=== PATIENT | female | born 1990 | race American Indian/Alaskan Native ===

== ENCOUNTER 2019-01-28 21:10 | Emergency (ER) | payer MEDICAID ==
[2019-01-28 21:33] VITALS: BP 130/103; PULSE 89; RESP 18; TEMP 98.6; O2SAT 100
--- NOTE | 2019-01-28 21:56 | ED PDOC ---
Arrival/HPI - General Historian: Patient - History of Present Illness Narrative History of Present Illness (Text): 01/28/19 21:52 Pt is a 28 yo female with a PMH of SCD, gastric ulcer, migraines, who presents to the ED complaining of a headache since January 16. Pt stated she has been to multiple emergency departments but has left because the wait was too long. Pt states her headache feels band-like around her head, the pain is 10/10 and pressure like. She states she has been vomiting. Pt denies diarrhea. Pt reports visual changes such as auras which occur intermittently. Time/Duration: < month Quality: Pressure Severity Level: 10 Activities at Onset: Rest Context: Sitting <Thaddeus Finney - Last Filed: 01/28/19 22:38> <Tunde Benítez - Last Filed: 01/29/19 01:15> - General Chief Complaint: Headache Past Medical History - Neurological Hx Migraine: Yes - Hematological/Oncological Hx Sickle Cell Trait: Yes - Gastrointestinal Hx Gastrointestinal Ulcer: Yes - Psychiatric Hx Substance Use: No - Surgical History Other/Comment: port insertion - Anesthesia Hx Anesthesia: Yes Hx Anesthesia Reactions: No Hx Malignant Hyperthermia: No <Thaddeus Finney - Last Filed: 01/28/19 22:38> Family/Social History Family/Social History: Other (HLD) Smoking Status: Never Smoked Hx Alcohol Use: Yes Frequency of alcohol use: Socially Hx Substance Use: No <Thaddeus Finney - Last Filed: 01/28/19 22:38> Allergies/Home Meds <Thaddeus Finney - Last Filed: 01/28/19 22:38> <Tunde Benítez - Last Filed: 01/29/19 01:15> Allergies/Adverse Reactions: Allergies meperidine [From Demerol] Allergy (Verified 01/28/19 21:30) ANAPHYLAXIS Review of Systems - Review of Systems Constitutional: Normal Eyes: Vision Changes ENT: Normal Respiratory: Normal Cardiovascular: Normal Gastrointestinal: Nausea, Vomiting. absent: Diarrhea Musculoskeletal: Normal Skin: Normal Neurological: Headache Endocrine: Normal Hemo/Lymphatic: Normal Psychiatric: Normal <Thaddeus Finney - Last Filed: 01/28/19 22:38> Physical Exam Vital Signs Temp Pulse Resp BP Pulse Ox 01/28/19 21:32 98.6 F 89 18 130/103 H 100 Temperature: Afebrile Blood Pressure: Normal Pulse: Regular Respiratory Rate: Normal Appearance: Positive for: Well-Appearing Mental Status: Positive for: Alert and Oriented X 3 - Systems Exam Head: Present: Atraumatic, Normocephalic Pupils: Present: PERRL Extroacular Muscles: Present: EOMI Mouth: Present: Moist Mucous Membranes Neck: Present: Normal Range of Motion Respiratory/Chest: Present: Clear to Auscultation, Good Air Exchange. No: Respiratory Distress, Accessory Muscle Use Cardiovascular: Present: Regular Rate and Rhythm, Normal S1, S2 Abdomen: Present: Tenderness, Distention, Normal Bowel Sounds Upper Extremity: Present: Normal Inspection Lower Extremity: Present: Normal Inspection Neurological: Present: GCS=15, CN II-XII Intact, Speech Normal Skin: Present: Warm, Dry, Normal Color Psychiatric: Present: Alert, Oriented x 3 <Thaddeus Finney - Last Filed: 01/28/19 22:38> Vital Signs Temp Pulse Resp BP Pulse Ox 01/28/19 21:32 98.6 F 89 18 130/103 H 100 <Tunde Benítez - Last Filed: 01/29/19 01:15> Medical Decision Making ED Course and Treatment: 01/28/19 22:03 CBC CMP Retic count reglan 10 IVP 01/28/19 22:33 pt eloped Pt seen, examined, assessment and plan discussed with Dr Jackelin Finney PGY1 <Thaddeus Finney - Last Filed: 01/28/19 22:38> ED Course and Treatment: Impression: Pt seen and evaluated with medical billing representative community education coordinator. Aware and agree with HPI, clinical findings, plan, and management. Pt, whose past medical history includes sickle cell disease, gastric ulcer, and migraines, presented complaining of he adache. Plan: -- Labs, reticulocyte count -- Reglan -- Reassess and disposition - Medication Orders Current Medication Orders: Discontinued Medications Metoclopramide HCl (Reglan) 10 mg IVP STAT STA Stop: 01/28/19 21:57 <Tunde Benítez - Last Filed: 01/29/19 01:15> - PA / LIVESTOCK SPECULATOR / Resident Statement CYN has reviewed & agrees with the documentation as recorded. CYN has examined the patient and agrees with the treatment plan. <Tunde Benítez - Last Filed: 01/29/19 01:15> Disposition/Present on Arrival - Present on Arrival Any Indicators Present on Arrival: No History of DVT/PE: No History of Uncontrolled Diabetes: No Urinary Catheter: No History of Decub. Ulcer: No History Surgical Site Infection Following: None - Disposition Have Diagnosis and Disposition been Completed?: Yes Disposition Time: 22:37 <Thaddeus Finney - Last Filed: 01/28/19 22:38> - Present on Arrival Any Indicators Present on Arrival: No - Disposition Have Diagnosis and Disposition been Completed?: Yes <Tunde Benítez - Last Filed: 01/29/19 01:15> - Disposition Diagnosis: Migraine, Eloped from emergency department Disposition: ELOPEMENT - ER ONLY Condition: GOOD Forms: [facility] (Irish)
== END 2019-01-28 22:33 | disposition left against medical advice (07) ==
LOC: MERGE 21:10 → ED 21:10
DX: G43.909 Migraine, unspecified, not intractable, without status migrainosus (principal); D57.1 Sickle-cell disease without crisis